=== PATIENT | female | born 1950 | race African-American/Black ===

== ENCOUNTER 2018-06-12 09:32 | Emergency (ER) | payer OTHER ==
--- NOTE | 2018-06-12 09:37 | EDPHY ---
H & P Time Seen by Provider: 06/12/18 09:37 HPI/ROS: CHIEF COMPLAINT: Dizziness, shortness of breath HISTORY OF PRESENT ILLNESS: The patient presents to the emergency department via ambulance with complaints of dizziness and shortness of breath. The patient is visiting from [place] and staying at a hotel. EMS reported positional orthostasis. The patient does have a history of diabetes and congestive heart failure. The patient does report some positional presyncope. She denies any focal numbness or weakness. She denies any history of fall or trauma. She denies headache. Patient denies any dysuria. She denies additional acute complaints. Patient does have a history of chronic low back pain and sciatica. She reports this is resulted in some immobility. She reportedly traveled to [place] by bus. She is currently anticoagulated. REVIEW OF SYSTEMS: A comprehensive 10 point review of systems is otherwise negative aside from elements mentioned in the history of present illness. Source: Patient Exam Limitations: No limitations - Medical/Surgical History PMH: Past medical history: Hypertension, diabetes - Family History Significant Family History: No pertinent family hx - Social History Smoking Status: Never smoked - Physical Exam Exam: General Appearance: Obese female, no acute distress Eyes: Pupils equal and round no pallor or injection ENT, Mouth: Mucous membranes moist, poor dentition Respiratory: There are no retractions, lungs are clear to auscultation Cardiovascular: Regular rate and rhythm Gastrointestinal: Abdomen is soft and nontender, no masses, bowel sounds normal Neurological: A&O, normal motor function, normal sensory exam, normal cranial nerves Skin: Warm and dry, no rashes Musculoskeletal: Neck is supple nontender Extremities: symmetrical, full range of motion Constitutional: Initial Vital Signs Temperature (C) 36.5 C 06/12/18 09:38 Heart Rate 71 06/12/18 09:38 Respiratory Rate 18 06/12/18 09:38 Blood Pressure 118/69 06/12/18 09:38 O2 Sat (%) 96 06/12/18 09:38 O2 Delivery Mode Room Air Allergies/Adverse Reactions: No Known Allergies Allergy (Unverified 06/12/18 09:44) Home Medications: Medication Instructions Recorded Amiodarone HCl 06/12/18 Aspirin 06/12/18 Bumetanide 06/12/18 Carvedilol 06/12/18 Hydrocodone/APAP 5/325 [Hostetter 1 - 2 each PO Q6 PRN #20 tab 06/12/18 5/325] Senna Lax 06/12/18 Warfarin Sodium 06/12/18 Medical Decision Making - Diagnostics EKG Interpretation: EKG: Complete interpretation has been separately recorded in the [facility] archive. Summary impression: Sinus rhythm, rate 68 Imaging Results: Imaging Impressions Chest X-Ray 06/12/18 10:17 Impression: 1. Cardiomegaly without failure. 2. Suspect underlying osteoporosis. ED Course/Re-evaluation: The patient has a history of diabetes and heart failure. She presents to the ED after an episode of positional presyncope earlier today. Patient's EKG demonstrates a normal sinus rhythm with a rate of 68. The patient is neurologically intact. Her vital signs are stable. Patient's laboratory testing is unremarkable. Chest x-ray demonstrates no evidence of heart failure. The patient is having a exacerbation of her chronic sciatic pain. She did receive some IV fluid rehydration in the emergency department. Re-evaluated the patient at noon. She is still having some difficulty walking secondary to her chronic back pain. The patient was offered admission to the hospital however she is requesting oral pain medications which she was given. She does not want to stay in the hospital. The patient was given 2 oral Percocet. Re-evaluation at 2:00 p.m.: The patient is now ambulatory. She would like to be discharged home with a prescription for Hostetter. Differential Diagnosis: Differential diagnosis considered includes dehydration, arrhythmia, congestive heart failure, hypoglycemia - Data Points Laboratory Results: Laboratory Results 06/12/18 09:45 06/12/18 09:45 06/12/18 06/12/18 06/12/18 09:50 09:45 09:45 WBC RBC Hgb Hct MCV MCH MCHC RDW Plt Count MPV Neut % (Auto) Lymph % (Auto) [place] % (Auto) Eos % (Auto) Baso % (Auto) Nucleat RBC Rel Count Absolute Neuts (auto) Absolute Lymphs (auto) Absolute Monos (auto) Absolute Eos (auto) Absolute Basos (auto) Absolute Nucleated RBC Immature Gran % Immature Gran # PT 22.0 SEC H SEC (12.0-15.0) INR 1.91 H (0.83-1.16) Sodium 140 mEq/L mEq/L (135-145) Potassium 4.0 mEq/L mEq/L (3.3-5.0) Chloride 107 mEq/L mEq/L (97-110) Carbon Dioxide 20 mEq/l L mEq/l (22-31) Anion Gap 13 mEq/L mEq/L (6-14) BUN 47 mg/dL H mg/dL (7-23) Creatinine 2.4 mg/dL H mg/dL (0.6-1.0) Estimated GFR 20 Glucose 220 mg/dL H mg/dL (70-100) Calcium 8.8 mg/dL mg/dL (8.5-10.4) POC Troponin I 0.04 ng/mL ng/mL (0.00-0.08) NT-Pro-B Natriuret Pep 7970 pg/mL H pg/mL (0-125) 06/12/18 09:45 WBC 6.54 10^3/uL 10^3/uL (3.80-9.50) RBC 3.81 10^6/uL L 10^6/uL (4.18-5.33) Hgb 10.4 g/dL L g/dL (12.6-16.3) Hct 33.5 % L % (38.0-47.0) MCV 87.9 fL fL (81.5-99.8) MCH 27.3 pg L pg (27.9-34.1) MCHC 31.0 g/dL L g/dL (32.4-36.7) RDW 15.3 % H % (11.5-15.2) Plt Count 267 10^3/uL 10^3/uL (150-400) MPV 10.8 fL fL (8.7-11.7) Neut % (Auto) 71.8 % % (39.3-74.2) Lymph % (Auto) 19.0 % % (15.0-45.0) [place] % (Auto) 7.2 % % (4.5-13.0) Eos % (Auto) 0.9 % % (0.6-7.6) Baso % (Auto) 0.5 % % (0.3-1.7) Nucleat RBC Rel Count 0.5 % H % (0.0-0.2) Absolute Neuts (auto) 4.70 10^3/uL 10^3/uL (1.70-6.50) Absolute Lymphs (auto) 1.24 10^3/uL 10^3/uL (1.00-3.00) Absolute Monos (auto) 0.47 10^3/uL 10^3/uL (0.30-0.80) Absolute Eos (auto) 0.06 10^3/uL 10^3/uL (0.03-0.40) Absolute Basos (auto) 0.03 10^3/uL 10^3/uL (0.02-0.10) Absolute Nucleated RBC 0.03 10^3/uL H 10^3/uL (0-0.01) Immature Gran % 0.6 % % (0.0-1.1) Immature Gran # 0.04 10^3/uL 10^3/uL (0.00-0.10) PT INR Sodium Potassium Chloride Carbon Dioxide Anion Gap BUN Creatinine Estimated GFR Glucose Calcium POC Troponin I NT-Pro-B Natriuret Pep Medications Given: Discontinued Medications Hydrocodone Bitart/Acetaminophen (Hostetter 5/325) 2 tab PO EDNOW ONE Stop: 06/12/18 12:59 Last Admin: 06/12/18 13:04 Dose: 2 tab Point of Care Test Results: Chemistry 06/12/18 09:50 POC Troponin I 0.04 ng/mL ng/mL (0.00-0.08) Departure - Departure Disposition: Home, Routine, Self-Care Clinical Impression: Dehydration, Sciatica Condition: Good Instructions: Dehydration (ED) Additional Instructions: 1. Hostetter as needed for pain. 2. Return to the ED for any worsening symptoms or other concerns. 3. Please follow-up with your primary care provider as scheduled
[2018-06-12 09:58] LABS: PLATELET COUNT 267 10^3/uL (150-400)
--- NOTE | 2018-06-12 10:02 | CPEKG ---
Test Reason : OPEN Blood Pressure : / mmHG Vent. Rate : 068 BPM Atrial Rate : 068 BPM P-R Int : 207 ms QRS Dur : 129 ms QT Int : 484 ms P-R-T Axes : 035 -35 045 degrees QTc Int : 515 ms Sinus rhythm Left bundle branch block Confirmed by Ramesh Nevarez ([id number]) on 06/12/2018 10:02:03 AM Referred By: Confirmed By:Ramesh Nevarez
[2018-06-12 10:05] LABS: INR 1.91 (0.83-1.16)
[2018-06-12] MEDS ORDERED: fentaNYL 100 MCG/2 ML INJ ONE (10:36)
[2018-06-12] MEDS ORDERED: HYDROCODONE/APAP 5/325 TAB PO ONE (12:58)
[2018-06-12 15:15] VITALS: BP 117/70
== END 2018-06-12 15:15 | disposition home or self-care (01) ==
DX: E86.0 Dehydration (principal); M54.40 Lumbago with sciatica, unspecified side; I10 Essential (primary) hypertension; E11.9 Type 2 diabetes mellitus without complications
CPT/HCPCS: 71046; 93005; 99285; J3010; 84484-PO